=== PATIENT | male | born 1970 | race Two or more races ===

== ENCOUNTER 2019-09-23 00:30 | Emergency (ER) | payer MEDICARE ==
[2019-09-23] MEDS ORDERED: Sodium Chloride 0.9% 10 ML Syringe FLUSH PRN (00:32)
[2019-09-23] MEDS ORDERED: Ondansetron 4 MG/2 ML SDV IVPUSH ONE (00:32)
[2019-09-23] MEDS ORDERED: LORazepam 2 MG/ML SDV IVPUSH ONE (00:32)
[2019-09-23] MEDS ORDERED: Pantoprazole 40 MG Vial IVPUSH ONE (00:36)
--- NOTE | 2019-09-23 00:40 | EDM.PDOC ---
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 His dog today,and he got real emotional. He has been vomiting,anxious,and experiencing abd pain. He denies alcohol use. He endorses a h/o GERD as well. - Related Data Allergies Allergy/AdvReac Type Severity Reaction Status Date / Time ibuprofen Allergy Cannot Verified 09/23/19 07:13 Remember morphine Allergy Cannot Verified 09/23/19 07:13 Remember nortriptyline [From Pamelor] Allergy Cannot Verified 09/23/19 07:13 Remember lactose intolerant Allergy Cannot Uncoded 09/23/19 07:13 Remember Home Meds: Home Meds Pantoprazole [ProTONIX] 40 mg PO DAILY 09/23/19 [History] ED ROS GENERAL - Review of Systems Review Of Systems: Comprehensive ROS is negative, except as noted in HPI. ED EXAM, GI/ABD - Physical Exam Exam: See Below Exam Limited By: Uncooperative General Appearance: Alert, WD/WN, Anxious Eyes: Bilateral: Normal Appearance, EOMI Ears: Normal External Exam, Normal Canal, Hearing Grossly Normal, Normal TMs Nose: Normal Inspection, Normal Mucosa, No Blood Throat/Mouth: Normal Inspection, Normal Lips, Normal Teeth, Normal Gums, Normal Oropharynx, Normal Voice, No Airway Compromise Head: Atraumatic, Normocephalic Neck: Normal Inspection Respiratory/Chest: No Respiratory Distress Cardiovascular: Tachycardia GI/Abdominal Exam: Soft, Guarding, Tender (LUQ). No: Distended Extremities: Normal Inspection Neurological: Alert, Oriented, CN II-XII Intact Psychiatric: Anxious, Tearful Skin Exam: Warm Lymphatic: No Adenopathy Course - Vital Signs Last Recorded V/S: Last Vital Signs Temp 97.4 F 09/23/19 06:10 Pulse 88 09/23/19 06:10 Resp 18 09/23/19 06:10 BP 115/88 09/23/19 06:10 Pulse Ox 96 09/23/19 06:10 - Orders/Labs/Meds Labs: Laboratory Tests 09/23/19 09/23/19 09/23/19 Range/Units 00:45 00:45 00:45 WBC 12.6 H (4.5-12.0) X10-3/uL RBC 4.60 (4.30-5.75) x10(6)uL Hgb 11.7 L (13.5-17.8) g/dL Hct 37.3 (30.0-51.3) % MCV 81.1 (80-96) fL MCH 25.4 L (27.7-33.6) pg MCHC 31.3 L (32.2-35.4) g/dL RDW 17.6 H (11.5-15.5) % Plt Count 427 H (125-369) X10(3)uL MPV 8.1 (7.4-10.4) fL Neut % (Auto) 80.5 (46-82) % Lymph % (Auto) 15.0 (13-37) % [place] % (Auto) 3.6 L (4-12) % Eos % (Auto) 0 L (1.0-5.0) % Baso % (Auto) 1 (0-2) % Neut # (Auto) 10.1 H (1.6-8.3) # Lymph # (Auto) 1.9 (0.6-5.0) # [place] # (Auto) 0.5 (0.0-1.3) # Eos # (Auto) 0.0 (0.0-0.8) # Baso # (Auto) 0.1 (0.0-0.2) # Sodium 139 (135-145) mmol/L Potassium 3.2 L (3.5-5.3) mmol/L Chloride 100 (100-110) mmol/L Carbon Dioxide 28 (21-32) mmol/L BUN 13 (7-18) mg/dL Creatinine 1.3 (0.70-1.30) mg/dL Est Cr Clr Drug Dosing TNP Estimated GFR (MDRD) 58 L (>60) BUN/Creatinine Ratio 10.0 (9-20) Glucose 129 H (80-116) mg/dL Calcium 11.4 H (8.6-10.2) mg/dL Total Bilirubin 0.4 (0.1-1.3) mg/dL AST 19 (5-25) IU/L ALT 21 (12-36) U/L Alkaline Phosphatase 108 (56-112) IU/L Total Protein 8.1 H (6.0-8.0) g/dL Albumin 4.2 (3.5-5.2) g/dL Globulin 3.9 g/dL Albumin/Globulin Ratio 1.1 Amylase (25-115) U/L Lipase 192 (73-393) U/L Urine Opiates Screen (NEGATIVE) Ur Oxycodone Screen (NEGATIVE) Ur Propoxyphene Screen (NEGATIVE) Ur Barbituates Screen (NEGATIVE) Ur Tricyclics Screen (NEGATIVE) Ur Phencyclidine Scrn (NEGATIVE) Ur Amphetamine Screen (NEGATIVE) Urine MDMA Screen (NEGATIVE) U Benzodiazepines Scrn (NEGATIVE) U Cocaine Metab Screen (NEGATIVE) U Marijuana (THC) Screen (NEGATIVE) Ethyl Alcohol < 0.03 (<0.03) % 09/23/19 09/23/19 Range/Units 00:45 01:05 WBC (4.5-12.0) X10-3/uL RBC (4.30-5.75) x10(6)uL Hgb (13.5-17.8) g/dL Hct (30.0-51.3) % MCV (80-96) fL MCH (27.7-33.6) pg MCHC (32.2-35.4) g/dL RDW (11.5-15.5) % Plt Count (125-369) X10(3)uL MPV (7.4-10.4) fL Neut % (Auto) (46-82) % Lymph % (Auto) (13-37) % [place] % (Auto) (4-12) % Eos % (Auto) (1.0-5.0) % Baso % (Auto) (0-2) % Neut # (Auto) (1.6-8.3) # Lymph # (Auto) (0.6-5.0) # [place] # (Auto) (0.0-1.3) # Eos # (Auto) (0.0-0.8) # Baso # (Auto) (0.0-0.2) # Sodium (135-145) mmol/L Potassium (3.5-5.3) mmol/L Chloride (100-110) mmol/L Carbon Dioxide (21-32) mmol/L BUN (7-18) mg/dL Creatinine (0.70-1.30) mg/dL Est Cr Clr Drug Dosing Estimated GFR (MDRD) (>60) BUN/Creatinine Ratio (9-20) Glucose (80-116) mg/dL Calcium (8.6-10.2) mg/dL Total Bilirubin (0.1-1.3) mg/dL AST (5-25) IU/L ALT (12-36) U/L Alkaline Phosphatase (56-112) IU/L Total Protein (6.0-8.0) g/dL Albumin (3.5-5.2) g/dL Globulin g/dL Albumin/Globulin Ratio Amylase 117 H (25-115) U/L Lipase (73-393) U/L Urine Opiates Screen Negative (NEGATIVE) Ur Oxycodone Screen Negative (NEGATIVE) Ur Propoxyphene Screen Negative (NEGATIVE) Ur Barbituates Screen Negative (NEGATIVE) Ur Tricyclics Screen Negative (NEGATIVE) Ur Phencyclidine Scrn Negative (NEGATIVE) Ur Amphetamine Screen Negative (NEGATIVE) Urine MDMA Screen Negative (NEGATIVE) U Benzodiazepines Scrn Negative (NEGATIVE) U Cocaine Metab Screen Negative (NEGATIVE) U Marijuana (THC) Screen Positive H (NEGATIVE) Ethyl Alcohol (<0.03) % Meds: Medications Discontinued Medications Generic Name Dose Route Start Last Admin Trade Name Freq PRN Reason Stop Dose Admin Hydromorphone HCl 2 mg 09/23/19 01:18 09/23/19 01:20 Dilaudid IVPUSH 09/23/19 01:19 2 mg ONETIME ONE Administration Sodium Chloride 1,000 mls @ 999 mls/hr 09/23/19 00:45 09/23/19 00:50 Normal Saline IV 999 mls/hr ASDIRECTED JOSE RAMON Administration Lorazepam 1 mg 09/23/19 00:32 09/23/19 00:59 Ativan IVPUSH 09/23/19 00:33 1 mg ONETIME ONE Administration Magnesium Citrate Confirm 09/23/19 06:22 09/23/19 06:30 Citrate Of Magnesia Administered 09/23/19 06:23 Not Given Dose 296 ml .ROUTE .STK-MED ONE Magnesium Citrate 296 ml 09/23/19 06:30 09/23/19 06:30 Citrate Of Magnesia PO 09/23/19 06:31 Not Given ONETIME ONE Ondansetron HCl 8 mg 09/23/19 00:32 09/23/19 00:53 Zofran IVPUSH 09/23/19 00:33 8 mg ONETIME ONE Administration Pantoprazole Sodium 40 mg 09/23/19 00:36 09/23/19 01:00 Protonix Iv IVPUSH 09/23/19 00:37 40 mg ONETIME ONE Administration Sodium Chloride 10 ml 09/23/19 00:32 Saline Flush FLUSH ASDIRECTED PRN Keep Vein Open Departure - Departure Time of Disposition: 07:14 Disposition: Home, Self-Care 01 Condition: Good Clinical Impression: Vomiting, Anxiety - Discharge Information Instructions: Magnesium Citrate oral solution Referrals: PCP,Not In Area [Primary Care Provider] - Forms: ED Department Discharge Care Plan Goals: Follow up with primary physician on Tuesday, September 23. Take Magnesium Citrate for constipation. Sepsis Event Note - Focused Exam Date Exam was Performed: 09/24/19 Time Exam was Performed: 07:14 - Problem List & Annotations (1) LUQ abdominal pain SNOMED Code(s): 237775538 Code(s): R10.12 - LEFT UPPER QUADRANT PAIN Status: Acute (2) Anxiety SNOMED Code(s): 41120415 Code(s): F41.9 - ANXIETY DISORDER, UNSPECIFIED Status: Acute (3) Vomiting SNOMED Code(s): 247647397 Code(s): R11.10 - VOMITING, UNSPECIFIED Status: Acute - Problem List Review Problem List Initiated/Reviewed/Updated: Yes - Assessment/Plan Plan: Ct showed moderate stool retention. No evidence of pancreatitis. He was extremely anxious. He got 1 mg of Lorazepm and 2 mg of Dilaudid,along with 1 L of Crystalloid. I discharged him in the morning after he slept for a while.
[2019-09-23] MEDS ORDERED: Sodium Chloride 0.9% 1,000 ML IV SCH (00:45)
[2019-09-23] MEDS ORDERED: HYDROmorphone 2 MG/ML SDV IVPUSH ONE (01:18)
[2019-09-23] MEDS ORDERED: Magnesium Citrate Solution 296 ML Bottle ONE (06:22)
[2019-09-23] MEDS ORDERED: Magnesium Citrate Solution 296 ML Bottle PO ONE (06:30)
== END 2019-09-23 06:30 | disposition home or self-care (01) ==
LOC: FB.ED 00:30
DX: R11.10 Vomiting, unspecified (principal); F41.9 Anxiety disorder, unspecified; R10.12 Left upper quadrant pain; R00.0 Tachycardia, unspecified; Z88.5 Allergy status to narcotic agent; Z88.8 Allergy status to other drugs, medicaments and biological substances; Z79.899 Other long term (current) drug therapy
CPT/HCPCS: 36415; 74176; 80053; 80305; 80307; 82150; 83690; 85025; 96361; 96374; 96375; 99284; A9270; C9113; J1170; J2060; J2405; J7030